=== PATIENT | male | born 1955 | race Caucasian/White ===

== ENCOUNTER 2016-06-21 18:55 | Inpatient (IN) | payer OTHER ==
--- NOTE | 2016-06-21 20:04 | PDOC ---
History of Present Illness - General History Source: Patient, Primary Care Provider Exam Limitations: No Limitations - History of Present Illness Initial Comments: 06/21/16 23:28 The patient is a 61 year old male, with a significant past medical history of hypertension and hyperlipidemia, who presents to the emergency department sent by PCP (Dr. Maldonado) for evaluation secondary to abnormal lab work. The patient reports several days of nonradiating abdominal pain, which he reports is worst in the RUQ. The patient reports that the abdominal pain is intermittent and notes that it is waxing and waning in intensity. The patient additionally reports nausea and weakness but denies any episodes of vomiting. The patient denies fever, chills, diarrhea, melena/bpr or dysuria. Allergies: None reported. Past Surgical History: None reported. Social History: Non smoker. Denies alcohol or drug use. PCP: Dr. Maldonado <Lilly Sr - Last Filed: 06/21/16 23:30> <Doug Escobar - Last Filed: 06/21/16 23:51> - General Chief Complaint: Pain Stated Complaint: PCP SENT/STOMACH PAIN Time Seen by Provider: 06/21/16 19:54 Past History <Lilly Sr - Last Filed: 06/21/16 23:30> - Past Medical History HTN: Yes Hypercholesterolemia: Yes - Psycho/Social/Smoking Cessation Hx Anxiety: No Suicidal Ideation: No Smoking History: Never smoked Have you smoked in the past 12 months: No Information on smoking cessation initiated: No Hx Alcohol Use: No Drug/Substance Use Hx: No Substance Use Type: Alcohol <Doug Escobar - Last Filed: 06/21/16 23:51> - Past Medical History Allergies/Adverse Reactions: Allergies Allergy/AdvReac Type Severity Reaction Status Date / Time No Known Allergies Allergy Verified 06/21/16 19:04 Review of Systems - Review of Systems Able to Perform ROS?: Yes Comments:: 06/21/16 23:01 CONSTITUTIONAL: +Weakness. No fever, no chills EYES: No visual changes ENT: No ear pain, no sore throat CARDIOVASCULAR: No chest pain, no palpitations RESPIRATORY: No cough, no SOB GI: +Nausea, abdominal pain. No vomiting, no constipation, no diarrhea GENITOURINARY: No dysuria, no frequency, no hematuria MUSCULOSKELETAL: No back pain, no joint pain, no myalgias SKIN: No rash NEURO: No headache <Lilly Sr - Last Filed: 06/21/16 23:30> *Physical Exam - Vital Signs Last Vital Signs Temp Pulse Resp BP Pulse Ox 98.5 F 98 H 18 135/74 100 06/21/16 19:04 06/21/16 19:04 06/21/16 19:04 06/21/16 19:04 06/21/16 19:04 - Physical Exam Comments: 06/21/16 23:03 CONSTITUTIONAL: Well-appearing; well-nourished; in no apparent distress. HEAD: Normocephalic; atraumatic. EYES: No scleral icterus. Conjunctiva are pink. PERRL; EOM intact. ENMT: External appears normal; normal oropharynx. NECK: Supple; non-tender; no cervical lymphadenopathy. CARD: Normal S1, S2; no murmurs, rubs, or gallops. RESP: Normal chest excursion with respiration; breath sounds clear and equal bilaterally; no wheezes, rhonchi, or rales. ABD: RUQ tenderness to palpation. No guarding, no rebound. Soft, non-distended; no palpable organomegaly, no palpable hernias. EXT: Normal ROM in all four extremities; non-tender to palpation; distal pulses intact. SKIN: Warm, dry, no rash. NEURO: No focal neurological deficiencies. Normal speech, normal gait. <Lilly Sr - Last Filed: 06/21/16 23:30> - Vital Signs Last Vital Signs Temp Pulse Resp BP Pulse Ox 98.5 F 98 H 18 135/74 100 06/21/16 19:04 06/21/16 19:04 06/21/16 19:04 06/21/16 19:04 06/21/16 19:04 <Doug Escobar - Last Filed: 06/21/16 23:51> Heart Score/ECG Review #1 ECG reviewed & interpreted by me at: 22:41 (Vent Rate: 83 bpm. Normal sinus rhythm.) <Lilly Sr - Last Filed: 06/21/16 23:30> ED Treatment Course - LABORATORY CBC & Chemistry Diagram: 06/21/16 20:11 06/21/16 20:11 <Lilly Sr - Last Filed: 06/21/16 23:30> - LABORATORY CBC & Chemistry Diagram: 06/21/16 20:11 06/21/16 20:11 - RADIOLOGY Radiology Studies Ordered: Category Date Time Status CHEST - PA [RAD] Stat Radiology 06/21/16 20:01 Ordered ABDOMEN US -LIMITED [US] Stat Ultrasound 06/21/16 20:01 Ordered <Doug Escobar - Last Filed: 06/21/16 23:51> Medical Decision Making - Medical Decision Making 06/21/16 23:08 EXAM: US/ABDOMEN US - LIMITED Reviewed By: Dr. Juliano Martinez IMPRESSION: Hepatomegaly with fatty infiltration versus hepatocellular disease. Please correlate with liver enzymes. Gallbladder debris with minimal sludge and probable tiny stones with mild thickening of its wall and without evidence of pericholecystic free fluid. Correlate clinically for further evaluation. Enlarged pancreas, mainly the pancreatic head with heterogenous echotexture for which further evaluation with three-phase CT scan of the abdomen/pancreas is recommended to evaluate for acute pancreatitis versus a mass. <Lilly Sr - Last Filed: 06/21/16 23:30> - Medical Decision Making 06/21/16 23:46 Patient is a 61-year-old Salvadorean speaking male with history of hypertension and hypercholesterolemia who presents with intermittent right upper quadrant pain associated with nausea, generalized weakness and malaise. Patient had been seen and evaluated by his primary care physician 2 days previously who obtained outpatient CBC and CMP which revealed elevated white blood cell count of 27 with 14 percent bandemia, elevated total and direct bilirubin, elevated ALTs and alkaline phosphatase consistent with obstructive pattern. In the ER, patient is awake and alert, nontoxic-appearing, afebrile and hemodynamically stable. CBC reveals significant decrease leukocytosis to 15, decrease and total and direct bilirubin as well as decrease in transaminases. Right upper quadrant ultrasound shows fatty infiltration of the liver, debris and tiny stones within the gallbladder as well as a questionable pancreatic head mass. Blood cultures been obtained and patient has received IV Zosyn for suspected cholangitis. At this time, I suspect patient may have had a small CBD stone that had passed. However, patient will require admission, GI and surgical evaluation. Will admit. Will keep nothing by mouth. <Doug Escobar - Last Filed: 06/21/16 23:51> *DC/Admit/Observation/Transfer - Attestations Scribe Attestion: 06/21/16 20:08 Documentation prepared by Lilly Sr, acting as medical clerk for Doug Escobar MD. <Lilly Sr - Last Filed: 06/21/16 23:30> - Discharge Dispostion Admit: Yes - Attestations Physician Attestion: 06/21/16 23:46 The documentation was prepared by the scribe under my direct supervision. I have reviewed the documentation which correctly represents the findings, medical decision-making and critical action taken by me. <Doug Escobar - Last Filed: 06/21/16 23:51> Diagnosis at time of Disposition: Cholangitis - Discharge Dispostion Condition at time of disposition: Fair - Referrals Referrals: Kristi Maldonado MD [Primary Care Provider] -
[2016-06-21] MEDS ORDERED: SODIUM CHLORIDE 500 ML IV STA (20:05)
[2016-06-21] MEDS ORDERED: PIPERACILLIN/TAZOB 4.5 GM/100 ML PRE-DOCKED IVPB ONE (20:30)
[2016-06-21 20:31] LABS: BASOPHIL 0.1 % (0-2.0); EOSINOPHIL 0.6 % (0-4.5); MCHC 33.7 g/dl (32.0-35.9); MEAN PLT VOLUME 9.4 fl (7.5-11.1); NEUTROPHILS 80.5 % (42.8-82.8); PLATELET COUNT 263 K/MM3 (134-434); RDW 15.6 % (11.9-15.9); WHITE BLOOD COUNT 15.9 K/mm3 (4.0-10.0)
[2016-06-21] MEDS ORDERED: PIPERACILLIN/TAZOB 4.5 GM 100 ML IVPB ONE (20:51)
[2016-06-21 20:57] LABS: ALBUMIN 2.7 g/dl (3.4-5.0); ALK PHOS 225 U/L (45-117); ANION GAP 13 (8-16); BILIRUBIN,DIRECT 1.4 mg/dL (0.0-0.2); CALCIUM 8.6 mg/dL (8.5-10.1); CO2 29 mmol/L (21-32); COCKROFT - GAULT 123.96; CREATININE 0.9 mg/dL (0.7-1.3); GLUCOSE,RANDOM 115 mg/dL (74-106); SGOT/AST 43 U/L (15-37); SGPT/ALT 97 U/L (12-78); TOT PROT 6.4 g/dl (6.4-8.2)
[2016-06-21 21:29] LABS: URINE APPEARANCE CLEAR; URINE BLOOD NEGATIVE (NEGATIVE); URINE COLOR AMBER; URINE GLUCOSE (UA) NEGATIVE (NEGATIVE); URINE KETONE TRACE (NEGATIVE); URINE LEUK ESTERASE NEGATIVE (NEGATIVE); URINE NITRITE NEGATIVE (NEGATIVE); URINE UROBILINOGEN 4.0 E.U/dl E.U./dl (0.2-1.0)
[2016-06-21 21:54] LABS: URINE PROTEIN 1+ (NEGATIVE)
[2016-06-21 22:01] LABS: URINE MUCUS MANY; URINE RBC 1 /hpf (0-3); URINE WBC 9 /hpf (3-5)
[2016-06-22] MEDS ORDERED: ONDANSETRON 4 MG/2 ML VIAL IVPB PRN (00:27)
--- NOTE | 2016-06-22 00:27 | HP ---
CHIEF COMPLAINT: Sent by PCP for abnormal labs & abdominal pain PCP: Erica HISTORY OF PRESENT ILLNESS: Patient is a 61 year old male with PMH of HTN & HLD who is sent to ED from PCP Erica's office. Patient has been having abdominal pain, notably in RUQ since last Saturday. He states the pain is moderate, intermittent and diffuse but concentrated in RUQ. He has not eaten since Saturday and has not had a bowel movement since then also. He has felt weak since then, stating his energy levels are below usual baseline. He has been nauseas as well, without vomiting. He has been gassy as well, but notes his distended abdomen is his baseline ("I am fat gaurav, this is normal"). He visited his PCP on Saturday, who ant labs and sent patient into ED today for following abnormal labs: WBC 27 TotalBilirubin 7.3 Direct Bilirubin 2.2 ALP 182 Patient currently feels no pain. Denies fever, chills, dysuria, chest pain, SOB , palpitations, headache visual changes or changes in mental status. ER course was notable for: (1)US shows GB with minimal sludge & tiny stones with some mild wall thickening. Pancreases is enlarged with possible mass in pancreatic head. Hepatomegaly (fatty vs Hepatocellular disease) (2)WBC elevated at 16 with Total Bilirubin 3 (both significantly improved from PCP's initial labwork) (3)Zosyn started Recent Travel: none noted PAST MEDICAL HISTORY: as above PAST SURGICAL HISTORY: none noted Social History: Smoking:NONE REPORTED Alcohol:USED TO DRINK "ALOT OF VODKA" BUT QUIT 2 WEEKS AGO Drugs: NONE REPORTED Family History: PATIENT UNSURE Allergies No Known Allergies Allergy (Verified 06/21/16 19:04) HOME MEDICATIONS: REVIEW OF SYSTEMS CONSTITUTIONAL: (+)generalized weakness, Absent: fever, chills, diaphoresis, malaise, loss of appetite, weight change HEENT: Absent: rhinorrhea, nasal congestion, throat pain, throat swelling, difficulty swallowing, mouth swelling, ear pain, eye pain, visual changes CARDIOVASCULAR: Absent: chest pain, syncope, palpitations, irregular heart rate, lightheadedness , peripheral edema RESPIRATORY: Absent: cough, shortness of breath, dyspnea with exertion, orthopnea, wheezing, stridor, hemoptysis GASTROINTESTINAL: (+)abdominal pain, abdominal distension, nausea, Absent: vomiting, diarrhea, melena, hematochezia GENITOURINARY: Absent: dysuria, frequency, urgency, hesitancy, hematuria, flank pain, genital pain MUSCULOSKELETAL: Absent: myalgia, arthralgia, joint swelling, back pain, neck pain SKIN: Absent: rash, itching, pallor HEMATOLOGIC/IMMUNOLOGIC: Absent: easy bleeding, easy bruising, lymphadenopathy, frequent infections ENDOCRINE: Absent: unexplained weight gain, unexplained weight loss, heat intolerance, cold intolerance NEUROLOGIC: Absent: headache, focal weakness or paresthesias, dizziness, unsteady gait, seizure, mental status changes, bladder or bowel incontinence PSYCHIATRIC: Absent: anxiety, depression, suicidal or homicidal ideation, hallucinations. PHYSICAL EXAMINATION Vital Signs - 24 hr 06/21/16 19:04 Temperature 98.5 F Pulse Rate 98 H Respiratory 18 Rate Blood Pressure 135/74 O2 Sat by Pulse 100 Oximetry (%) GENERAL: Awake, alert, and fully oriented, in no acute distress. Morbidly obese. HEENT: Atraumatic, EOMI, PERRLA, Moist membranes, no lymphadenopathy noted LUNGS: Breath sounds equal, clear to auscultation bilaterally. No wheezes, and no crackles. No accessory muscle use. HEART: Regular rate and rhythm, normal S1 and S2 without murmur, rub or gallop. ABDOMEN: Soft, mildly tender to deep palpation diffusely, moderately distended ( but not above usual baseline, as per patient), hypoactive bowel sounds. No guarding, no rebound, no masses felt. MUSCULOSKELETAL: Normal range of motion at all joints. No bony deformities or tenderness. No CVA tenderness. UPPER EXTREMITIES: 2+ pulses, warm, well-perfused. No cyanosis. No clubbing. No peripheral edema. LOWER EXTREMITIES: 2+ pulses, warm, well-perfused. No calf tenderness. No peripheral edema. NEUROLOGICAL: Cranial nerves II-XII intact. Normal speech. Normal gait. PSYCHIATRIC: Cooperative. Good eye contact. Appropriate mood and affect. SKIN: Warm, dry, normal turgor, no rashes or lesions noted, normal capillary refill. Laboratory Results - last 24 hr 06/21/16 06/21/16 06/21/16 20:11 20:11 20:11 WBC 15.9 H RBC 4.82 Hgb 14.4 Hct 42.8 MCV 89.0 MCHC 33.7 RDW 15.6 Plt Count 263 MPV 9.4 Neutrophils % 80.5 Lymphocytes % 6.1 L Monocytes % 12.7 H Eosinophils % 0.6 Basophils % 0.1 Sodium 135 L Potassium 3.2 L Chloride 93 L Carbon Dioxide 29 Anion Gap 13 BUN 13 Creatinine 0.9 Creat Clearance w eGFR > 60 Random Glucose 115 H Lactic Acid 1.084 Calcium 8.6 Total Bilirubin 3.0 H Direct Bilirubin 1.4 H AST 43 H ALT 97 H Alkaline Phosphatase 225 H Total Protein 6.4 Albumin 2.7 L Lipase 144 Urine Color Urine Appearance Urine pH Ur Specific [place] Urine Protein Urine Glucose (UA) Urine Ketones Urine Blood Urine Nitrite Urine Bilirubin Urine Urobilinogen Ur Leukocyte Esterase Urine RBC Urine WBC Ur Epithelial Cells Urine Mucus 06/21/16 20:57 WBC RBC Hgb Hct MCV MCHC RDW Plt Count MPV Neutrophils % Lymphocytes % Monocytes % Eosinophils % Basophils % Sodium Potassium Chloride Carbon Dioxide Anion Gap BUN Creatinine Creat Clearance w eGFR Random Glucose Lactic Acid Calcium Total Bilirubin Direct Bilirubin AST ALT Alkaline Phosphatase Total Protein Albumin Lipase Urine Color Anna Urine Appearance Clear Urine pH 6.0 Ur Specific [place] 1.023 Urine Protein 1+ H Urine Glucose (UA) Negative Urine Ketones Trace H Urine Blood Negative Urine Nitrite Negative Urine Bilirubin 2.0 Urine Urobilinogen 4.0 e.u/dl Ur Leukocyte Esterase Negative Urine RBC 1 Urine WBC 9 Ur Epithelial Cells Rare Urine Mucus Many ASSESSMENT/PLAN: 61 year old male with PMH of HTN & HLD who is sent to ED from PCP Erica's office. Patient has been having abdominal pain, notably in RUQ. WBC elevated with elevated TBili, DirectBili, ALP. #Acute Sepsis, secondary to cholangitis -Zosyn started, 4.5gm IVPB Q8H -KUB ordered to r/o intestinal obstruction -NPO -Cultures sent -IVF NS@75cc/hr -GI consulted -bowel regimen: Colace, Miralax -Zofran 4mg IVPB q6h PRN for nausea -Protonix 40mg PO daily -Morphine 2mg q6h PRN for pain #Possible Pancreatic mass -patient will require tri-phase CT scan in AM to assess Pancreas for masses -will defer to GI regarding need for ERCP #Hypokalemia -repleted with 40mEq elixir -follow in AM #Hypertension -patient is unsure of names, but states he is on 2 antihypertensive medications -need to confirm with pharmacy in AM -will trend BP for now Prophylaxis -Heparin 5000 BID -PPI -IVF NS@75cc/hr -continue to monitor electrolytes -NPO for now Visit type - Emergency Visit Emergency Visit: Yes ED Registration Date: 06/21/16 Care time: The patient presented to the Emergency Department on the above date and was hospitalized for further evaluation of their emergent condition. - New Patient This patient is new to me today: Yes Date on this admission: 06/22/16 - Critical Care Critical Care patient: No
[2016-06-22] MEDS ORDERED: SODIUM CHLORIDE 1,000 ML IV SCH (00:30)
[2016-06-22] MEDS ORDERED: POTASSIUM CHLORIDE TABS 20 MEQ TABLET.ER (FP) PO ONE ×2 (00:37→00:57)
--- NOTE | 2016-06-22 02:20 | PN ---
<Thuy Fleming - Last Filed: 06/22/16 02:20> Teaching Attending Note Name of Resident: Jorje Baltazar <Radha Herrera - Last Filed: 06/22/16 04:43> Teaching Attending Note ATTENDING PHYSICIAN STATEMENT I saw and evaluated the patient. I reviewed the resident's note and discussed the case with the resident. I agree with the resident's findings and plan as documented. SUBJECTIVE: 61 yo M with a PMHx of HLD who presents with abdominal pain, nausea and weakness.. The patient states he ate a big meal 7 days ago and since then has been experiencing intermittent upper abdominal pain, worse in the RUQ. The patient denies any vomiting episodes. Patient reports visiting his PCPs office (Dr. Maldonado) and was sent in for evaluation due to WBC count of 27. He denies chest pain, headache or dizziness. He denies fever, chills, vomit, diarrhea or constipation. He denies dysuria, frequency, urgency or hematuria. PMHx: HTN PSHx: Noncontributory Social Hx: Former EtOH drinker Allergies: NKA OBJECTIVE: Last Vital Signs Temp Pulse Resp BP Pulse Ox 98.4 F 92 H 17 133/57 98 06/22/16 02:08 06/22/16 02:08 06/22/16 02:08 06/22/16 02:08 06/22/16 02:08 GENERAL: Awake, alert, and fully oriented, in no acute distress. + Morbidly obese. HEENT: Atraumatic. PERRLA, EOMI. Moist mucosa. No JVD LUNGS: No distress, speaks full sentences, clear to auscultation bilaterally HEART: Regular rate and rhythm, normal S1 and S2, no murmurs, rubs or gallops, peripheral pulses normal and equal bilaterally. ABDOMEN: + RUQ tednerness. Negative Cuellar sign. Soft, nontender, normoactive bowel sounds. No guarding, no rebound. No masses EXTREMITIES: Normal inspection, Normal range of motion, no edema. No clubbing or cyanosis. NEUROLOGICAL: Cranial nerves II through XII grossly intact. Normal speech, normal gait, no focal sensorimotor deficits SKIN: Warm, Dry, normal turgor, no rashes or lesions noted. CBCD WBC 15.9 K/mm3 (4.0-10.0) H 06/21/16 20:11 RBC 4.82 M/mm3 (4.00-5.60) 06/21/16 20:11 Hgb 14.4 GM/dL (11.7-16.9) 06/21/16 20:11 Hct 42.8 % (35.4-49) 06/21/16 20:11 MCV 89.0 fl (80-96) 06/21/16 20:11 MCHC 33.7 g/dl (32.0-35.9) 06/21/16 20:11 RDW 15.6 % (11.9-15.9) 06/21/16 20:11 Plt Count 263 K/MM3 (134-434) 06/21/16 20:11 MPV 9.4 fl (7.5-11.1) 06/21/16 20:11 CMP Sodium 135 mmol/L (136-145) L 06/21/16 20:11 Potassium 3.2 mmol/L (3.5-5.1) L 06/21/16 20:11 Chloride 93 mmol/L (98-107) L 06/21/16 20:11 Carbon Dioxide 29 mmol/L (21-32) 06/21/16 20:11 Anion Gap 13 (8-16) 06/21/16 20:11 BUN 13 mg/dL (7-18) 06/21/16 20:11 Creatinine 0.9 mg/dL (0.7-1.3) 06/21/16 20:11 Creat Clearance w eGFR > 60 (>60) 06/21/16 20:11 Calcium 8.6 mg/dL (8.5-10.1) 06/21/16 20:11 Total Bilirubin 3.0 mg/dL (0.2-1.0) H 06/21/16 20:11 AST 43 U/L (15-37) H 06/21/16 20:11 ALT 97 U/L (12-78) H 06/21/16 20:11 Alkaline Phosphatase 225 U/L (45-117) H 06/21/16 20:11 Total Protein 6.4 g/dl (6.4-8.2) 06/21/16 20:11 Albumin 2.7 g/dl (3.4-5.0) L 06/21/16 20:11 Imaging: Abdominal US IMPRESSION: Hepatomegaly with fatty infiltration versus hepatocellular disease. Please correlate with liver enzymes. Gallbladder debris with minimal sludge and probable tiny stones with mild thickening of its wall and without evidence of pericholecystic free fluid. Correlate clinically for further evaluation. Enlarged pancreas, mainly the pancreatic head with heterogenous echotexture for which further evaluation with three-phase CT scan of the abdomen/pancreas is recommended to evaluate for acute pancreatitis versus a mass. EKG Vent Rate: 83 bpm. Normal sinus rhythm ASSESSMENT AND PLAN: 1.Abdominal pain secondary to Cholangitis r/o pancreatic malignancy. NPO IVF Zosyn Xofran PRN Morphine 2mg IVP Q6 for severe pain Follow up CBC and BMP in am GIconsult for consideration of ERCP CT abdomen 2.)DVT PPx Heparin 5000 units TID 3.) Obesity Refer to nutrition for weight loss Documentation prepared by Radha Herrera, acting as medical claims manager for Thuy Fleming MD
[2016-06-22 02:29] VITALS: BMI 34.4
[2016-06-22 03:00] LABS: ALLENS TEST POSITIVE; ART PUNCT SITE LEFT RADIAL; ARTERIAL BLD GAS O2 SATURATION 94.1 % (90-98.9); ARTERIAL BLOOD GAS BASE EXCESS 2.1 meq/l (-2-2); ARTERIAL BLOOD GAS HCO3 24.8 meq/L (22-26); ARTERIAL BLOOD GAS PO2 66.6 mmHg (80-100); ARTERIAL BLOOD GAS pH 7.47 (7.35-7.45); LPM/O2% 21%; METHEMOGLOBIN 0.9 % (0.4-1.5); PT. ON O2? NO
[2016-06-22 03:01] LABS: TYPE OF O2 ROOM AIR
[2016-06-22] MEDS ORDERED: PIPERACILLIN/TAZOB 4.5 GM/100 ML PRE-DOCKED IVPB SCH (06:00)
[2016-06-22] MEDS: DOCUSATE SODIUM 100 MG CAPSULE (FP) PO SCH ×3 (06:45→23:03)
[2016-06-22 07:16] LABS: MCH 30.4 pg (25.7-33.7); MCHC 34.4 g/dl (32.0-35.9); MEAN CELL VOLUME 88.5 fl (80-96); MEAN PLT VOLUME 8.9 fl (7.5-11.1); PLATELET COUNT 205 K/MM3 (134-434); RDW 15.8 % (11.9-15.9); WHITE BLOOD COUNT 14.7 K/mm3 (4.0-10.0)
[2016-06-22 07:44] LABS: CALCIUM 8.3 mg/dL (8.5-10.1)
[2016-06-22 07:49] LABS: ALBUMIN 2.3 g/dl (3.4-5.0); ALK PHOS 202 U/L (45-117); ANION GAP 13 (8-16); BILIRUBIN,TOTAL 2.3 mg/dL (0.2-1.0); CO2 25 mmol/L (21-32); COCKROFT - GAULT 182.96; CREATININE 0.6 mg/dL (0.7-1.3); GLUCOSE,RANDOM 99 mg/dL (74-106); SGOT/AST 48 U/L (15-37); SGPT/ALT 90 U/L (12-78); TOT PROT 5.4 g/dl (6.4-8.2)
[2016-06-22] MEDS ORDERED: LEVOFLOXACIN 500 MG IVPB 100 ML IVPB ONE (09:02)
[2016-06-22] MEDS: POLYETHYLENE GLYCOL 3350 119 GM BTL PO SCH (09:13)
[2016-06-22] MEDS: PANTOPRAZOLE 40 MG TABLET (FP) PO SCH (09:13)
[2016-06-22] MEDS: LEVOFLOXACIN 500 MG IVPB 100 ML IVPB SCH (09:49)
[2016-06-22] MEDS: HEPARIN NA (PORCINE) 5,000 UNITS/ML 1ML VIAL SQ SCH ×2 (09:49→23:03)
--- NOTE | 2016-06-22 10:34 | PN ---
Physical Exam: SUBJECTIVE: Patient seen and examined at bedside. Vague about history of alcohol intake. When he drinks he drinks 4-5 glasses of vodka. Declines to say when he last drank. Abdominal pain comes and goes. OBJECTIVE: Vital Signs Period Temp Pulse Resp BP Sys/[place] Pulse Ox Last 24 Hr 98.4 F-99.3 F 78-92 17-22 102-133/52-75 96-98 GENERAL: The patient is awake, alert, and fully oriented, in no acute distress. HEAD: Normal with no signs of trauma. EYES: PERRL, extraocular movements intact, sclera anicteric, conjunctiva clear. No ptosis. LUNGS: Breath sounds equal, clear to auscultation bilaterally, no wheezes, no crackles, no accessory muscle use. HEART: Regular rate and rhythm, S1, S2 without murmur, rub or gallop. ABDOMEN: Soft, not distended, +tenderness over the RUQ and epigastrum; hypoactive bowel sounds; no rebound, guarding; +mass appeciated on left flank EXTREMITIES: 2+ pulses, warm, well-perfused, no edema. NEUROLOGICAL: Cranial nerves II through XII grossly intact. Normal speech, gait not observed. Moves all extremities freely. Laboratory Results - last 24 hr 06/22/16 06/22/16 06/22/16 02:50 06:00 06:00 WBC 14.7 H RBC 4.27 Hgb 13.0 Hct 37.8 MCV 88.5 MCHC 34.4 RDW 15.8 Plt Count 205 D MPV 8.9 Puncture Site Left radial ABG pH 7.47 H ABG pCO2 at Pt Temp 34.2 L ABG pO2 at Pt Temp 66.6 L ABG HCO3 24.8 ABG O2 Sat (Measured) 94.1 ABG O2 Content 20.9 ABG Base Excess 2.1 H Samir Test Positive Carboxyhemoglobin 2.4 H Methemoglobin 0.9 O2 Delivery Device Room air Oxygen Flow Rate 21% Sodium 136 Potassium 3.5 Chloride 98 Carbon Dioxide 25 Anion Gap 13 BUN 13 Creatinine 0.6 L D Creat Clearance w eGFR > 60 Random Glucose 99 Calcium 8.3 L Total Bilirubin 2.3 H D AST 48 H ALT 90 H Alkaline Phosphatase 202 H Total Protein 5.4 L Albumin 2.3 L Active Medications Generic Name Dose Route Start Last Admin Trade Name Freq PRN Reason Stop Dose Admin Docusate Sodium 100 mg 06/22/16 06:00 06/22/16 06:45 Colace - PO Not Given TID AMANDA Heparin Sodium (Porcine) 5,000 unit 06/22/16 10:00 06/22/16 09:49 Heparin - SQ 5,000 unit BID AMANDA Administration Sodium Chloride 1,000 mls @ 75 mls/hr 06/22/16 00:30 06/22/16 01:14 Normal Saline - IV 06/22/16 13:49 75 mls/hr ASDIR AMANDA Administration Metronidazole 100 mls @ 100 mls/hr 06/22/16 10:00 Flagyl 500mg Premixed Ivpb - IVPB Q8H-IV AMANDA Levofloxacin 100 mls @ 100 mls/hr 06/22/16 09:15 06/22/16 09:49 Levaquin 500 Mg Premixed Ivpb - IVPB 100 mls/hr DAILY AMANDA Administration Morphine Sulfate 2 mg 06/22/16 05:59 Morphine Injection - IVPUSH Q6H PRN PAIN Ondansetron HCl 4 mg 06/22/16 00:27 Zofran Injection IVPB Q6H PRN NAUSEA Pantoprazole Sodium 40 mg 06/22/16 10:00 06/22/16 09:13 Protonix - PO Not Given DAILY AMANDA Polyethylene Glycol 17 gm 06/22/16 10:00 06/22/16 09:13 Miralax (For Daily Use) - PO Not Given DAILY [facility] ASSESSMENT/PLAN 61 year-old male with a PMH of HTN and HLD, presented to his PCP with complaint of RUQ pain. PCP did blood work which showed WBC 27k, Total bili 7.3, Direct bili 2.2, and Alkphos 182. Patient was sent to ED Biliary colic Leukocytosis Hyperbilirubinemia --US shows gallbladder debris with minimal sludge, tiny stones, mild wall thickening, no duct dilitation --also shows enlarged pancreas, mainly pancreatic head, concern for acute pancreatitis v. pancreatic mass --Total bili trending down 7.3-->2.3; lipase wnl --start levofloxacin (day #1) and metronidazole (day #1) --MRCP ordered per GI Pyruria --antibiotics as above --culture pending F/E/N Fluids: NS @ 75mL/hr Electrolytes: replete as indicated Nutrition: NPO DVT prophylaxis: subq heparin Dispo: continues to require inpatient care. Full code. Visit type - Emergency Visit Emergency Visit: Yes ED Registration Date: 06/21/16 Care time: The patient presented to the Emergency Department on the above date and was hospitalized for further evaluation of their emergent condition. - New Patient This patient is new to me today: Yes Date on this admission: 06/22/16 - Critical Care Critical Care patient: No
[2016-06-22] MEDS: METRONIDAZOLE 500 MG PREMIXED 100 ML IVPB SCH ×2 (10:45→18:47)
--- NOTE | 2016-06-22 11:24 | EKG ---
Test Reason : Blood Pressure : / mmHG Vent. Rate : 083 BPM Atrial Rate : 083 BPM P-R Int : 158 ms QRS Dur : 082 ms QT Int : 396 ms P-R-T Axes : 046 023 028 degrees QTc Int : 465 ms NORMAL SINUS RHYTHM NO PREVIOUS ECGS AVAILABLE Confirmed by WESLEY KOENIG MD ([id number]) on 06/22/2016 11:23:51 AM Referred By: Confirmed By:WESLEY KOENIG MD
[2016-06-22] MEDS: DEXTROSE 5%-NORMAL SALINE 1,000 ML IV SCH (13:57)
[2016-06-22 16:53] LABS: URINE APPEARANCE CLEAR; URINE BILIRUBIN NEGATIVE (NEGATIVE); URINE BLOOD NEGATIVE (NEGATIVE); URINE COLOR AMBER; URINE GLUCOSE (UA) NEGATIVE (NEGATIVE); URINE KETONE 1+ (NEGATIVE); URINE LEUK ESTERASE NEGATIVE (NEGATIVE); URINE NITRITE NEGATIVE (NEGATIVE); URINE PROTEIN NEGATIVE (NEGATIVE); URINE UROBILINOGEN 4.0 E.U/dl E.U./dl (0.2-1.0)
--- NOTE | 2016-06-22 17:24 | CON.GI ---
Consult Consult Specialty:: Gastroenterology Reason for Consultation:: abdominal pain - History of Present Illness Chief Complaint: abdominal pain History of Present Illness: 61 YEAR OLD ENGLISH MALE ADMITTED WITH ABDOMINAL PAIN AND ELEVATED LFT'S. HE STATES THAT LAST SATURDAY HE HAD A BANANNA AND STRAWBERRY SMOOTHIE AND ONE HOUR LATER HAD VERY BAD ABDOMINAL PAIN WITH ABDOMINAL DISTENSION . HE BECAME NAUSEATED AND VOMITIED 3 TO 4 TIMES (NO BLOOD). HE FELT BETTER THE NEXT DAY AND ATE SOUP AND THE PAIN CAME BACK. FROM THAT POINT ON HE EITHER DID NOT EAT OR DRANK WATER ONLY. HE TOLD A FRIEND HOW SICK HE WAS AND HIS FRIEND GAVE HIM THE NUMBER OF DR TOLENTINO. DR TOLENTINO SAROJ BLOOD AND CALLED HIM THE NEXT DAY WHEN HIS LABS WERE ABNORMAL. DR TOLENTINO TOLD HIM TO GO TO THE ER AND THEN HE WAS ADMITTED. HE DENIES DRINKING ANY ALCOHOL SINCE . HE HAS NO RECTAL BLEEDING OR FEVER. HE DOES STATE THAT HE HAS HAD THIS PAIN ON OCCASION BEFORE. HE HAS NOR KNOWN GALLSTONE HISTORY. - History Source History Provided By: Patient Limitations to Obtaining History: No Limitations - Past Medical History GAME ATTENDANT: No: Alzheimer's, CVA, Dementia, Migraine, Multiple Sclerosis, Peripheral Neuropathy, Parkinson's, Seizure, Syncope, TIA, Vertigo, Other Cardio/Vascular: No: AFIB, Aneurysm, Aortic Insufficiency, Aortic Stenosis, CAD , CHF, Deep Vein Thrombosis, HTN, Hyperlipdemia, MO, Mitral Insufficiency, Mitral Stenosis, Murmur, Pulmonary Hypertension, Other Pulmonary: No: Asthma, Bronchitis, Cancer, COPD, O2 Dependent, Pneumonia, Previously Intubated, Pulmonary Embolus, Pulmonary Fibrosis, Sleep Apnea, Other Gastrointestinal: No: Ascites, Cancer, Constipation, Crohn's Disease, Diverticulitis, Diverticulosis, Esophageal Varices, Gastritis, GERD, GI Bleed, Hemorrhoids, Hiatal Hernia, Inflamatory Bowel Disease, Irritable Bowel Disease, Pancreatitis, Peptic Ulcer Disease, Ulcerative Colitis, Other Hepatobiliary: No: Cirrhosis, Cholelithiasis, Cholecystitis, Choledocholithiasis , Hepatitis A, Hepatitis B, Hepatitis C, Other Renal/: No: Renal Failure, Renal Inusuff, BPH, Cancer, Hematuria, Hemodialysis , Neurogenic Bladder, Renal Calculi, UTI, Other Heme/Onc: No: Anemia, B12 Deficiency, Bleeding Disorder, Cancer, Current Chemotherapy, Current Radiation Therapy, Hemochromatosis, Hypercoaguable State, Myeloproliferative Synd, Sickle Cell Disease, Sickle Cell Trait, Thrombocytopenia, Other Infectious Disease: No: AIDS, C-Diff, Herpes Zoster, HIV, MRSA, STD's, Tuberculosis, VREF, Other Psych: No: Addictions, Anxiety, Bipolar, Depression, Panic, Psychosis, Schizophrenia, Other Musculoskeletal: No: Bursitis, Chronic low back pain, Hemiparesis, Hemiplegia, Osteoarthritis, Paraplegia, Other Rheumatology: No: Fibromyalgia, Gout, Lupus, Rheumatoid Arthritis, Sarcoidosis, Vasculitis, Other ENT: No: Allergic Rhinitis, Sinusitis, Other Endocrine: No: Kern's Disease, [place]'s Disease, Diabetes Insipidus, Diabetes Mellitus, Hyperparathyroidism, Hyperthyroidism, Hypothyroidism, Osteopenia, SIADH, Other Dermatology: No: Basal Cell, Cellulitis, Eczema, Melanoma, Psoriasis, Squamous Cell, Other - Alcohol/Substance Use Hx Alcohol Use: Yes (states to me drinks at celebrations last with friends on [facility]) - Smoking History Smoking history: Never smoked Have you smoked in the past 12 months: No Home Medications - Allergies Allergies/Adverse Reactions: Allergies Allergy/AdvReac Type Severity Reaction Status Date / Time No Known Allergies Allergy Verified 06/21/16 19:04 - Home Medications Home Medications: Ambulatory Orders NK [No Known Home Medication] 06/22/16 Family Disease History - Family Disease History Family History: Unremarkable Review of Systems - Review of Systems Constitutional: reports: Chills, Loss of Appetite, Weakness Eyes: reports: No Symptoms HENT: reports: No Symptoms Neck: reports: No Symptoms Cardiovascular: reports: No Symptoms Respiratory: reports: No Symptoms Gastrointestinal: reports: Abdominal Pain, Nausea, Vomiting Musculoskeletal: reports: No Symptoms Integumentary: reports: No Symptoms Neurological: reports: No Symptoms Endocrine: reports: No Symptoms Hematology/Lymphatic: reports: No Symptoms Physical Exam-GI Vital Signs: Vital Signs Temperature 99.3 F 06/22/16 16:20 Pulse Rate 79 06/22/16 16:20 Respiratory Rate 20 06/22/16 16:20 Blood Pressure 133/76 06/22/16 16:20 O2 Sat by Pulse Oximetry (%) 98 06/22/16 14:00 Constitutional: Yes: Well Nourished, Obese Eyes: Yes: Conjunctiva Clear HENT: Yes: Normocephalic Neck: Yes: Supple Cardiovascular: Yes: Regular Rate and Rhythm Respiratory: Yes: Regular ...Auscultate: Yes: Normoactive Bowel Sounds ...Palpate: Yes: Soft, Other (mild tenderness to deep palpation) Musculoskeletal: Yes: WNL Extremities: Yes: WNL Neurological: Yes: Alert, Oriented Labs: CBC, BMP 06/22/16 06:00 06/22/16 06:00 Laboratory Tests 06/21/16 06/21/16 06/21/16 20:11 20:11 20:11 WBC 15.9 H RBC Hgb Hct MCV MCHC RDW Plt Count MPV ABG pH ABG pCO2 at Pt Temp ABG pO2 at Pt Temp ABG HCO3 ABG O2 Sat (Measured) ABG O2 Content ABG Base Excess Saimr Test Carboxyhemoglobin Methemoglobin O2 Delivery Device Oxygen Flow Rate Sodium Potassium Chloride Carbon Dioxide Anion Gap BUN Creatinine Creat Clearance w eGFR Random Glucose Lactic Acid 1.084 Total Bilirubin 3.0 H Direct Bilirubin 1.4 H AST ALT Alkaline Phosphatase 225 H Total Protein Albumin Lipase 144 06/22/16 06/22/16 06/22/16 02:50 06:00 06:00 WBC 14.7 H RBC 4.27 Hgb 13.0 Hct 37.8 MCV 88.5 MCHC 34.4 RDW 15.8 Plt Count 205 D MPV 8.9 ABG pH 7.47 H ABG pCO2 at Pt Temp 34.2 L ABG pO2 at Pt Temp 66.6 L ABG HCO3 24.8 ABG O2 Sat (Measured) 94.1 ABG O2 Content 20.9 ABG Base Excess 2.1 H Samir Test Positive Carboxyhemoglobin 2.4 H Methemoglobin 0.9 O2 Delivery Device Room air Oxygen Flow Rate 21% Sodium 136 Potassium 3.5 Chloride 98 Carbon Dioxide 25 Anion Gap 13 BUN 13 Creatinine 0.6 L D Creat Clearance w eGFR > 60 Random Glucose 99 Lactic Acid Total Bilirubin 2.3 H D Direct Bilirubin AST 48 H ALT 90 H Alkaline Phosphatase 202 H Total Protein 5.4 L Albumin 2.3 L Lipase Imaging - Results Ultrasound: Report Reviewed Problem List - Problems (1) Elevated liver function tests Assessment/Plan: HIS ALCOHOL HISTORY IS NOT CLEAR. HE DOES HAVE GALLSTONES AND SLUDGE. THE US REVEALS A THICK GB WALL BUT NO FLUID. THE HEAD OF THE PANCREAS IS ENLARGED AND POSSIBLY THE DUCT. THE LIPASE IS NORMAL. LFT'S HAVE IMPROVE S/P ABX. DOUBT CHOLANGITIS. WILL ORDER MRI AND MRCP TO EVALUATE THE HEAD OF PANCREAS AND THE BILE DUCTS. HE COULD HAVE PASSED A STONE EARLIER IN THE WEEK. WILL FOLLOW WITH YOU. Code(s): R94.5 - ABNORMAL RESULTS OF LIVER FUNCTION STUDIES (2) Gallstones Code(s): K80.20 - CALCULUS OF GALLBLADDER W/O CHOLECYSTITIS W/O OBSTRUCTION
[2016-06-22] MEDS: morphine CARPU-JECT 2 MG/1 ML DISP.SYRIN IVPUSH PRN (18:16)
[2016-06-23] MEDS: METRONIDAZOLE 500 MG PREMIXED 100 ML IVPB SCH ×3 (01:17→17:44)
[2016-06-23] MEDS: morphine CARPU-JECT 2 MG/1 ML DISP.SYRIN IVPUSH PRN (04:30)
[2016-06-23] MEDS: DOCUSATE SODIUM 100 MG CAPSULE (FP) PO SCH ×3 (05:48→22:22)
[2016-06-23 07:01] LABS: BASOPHIL 0.2 % (0-2.0); EOSINOPHIL 1.6 % (0-4.5); MCH 30.6 pg (25.7-33.7); MCHC 34.2 g/dl (32.0-35.9); MEAN CELL VOLUME 89.4 fl (80-96); MEAN PLT VOLUME 9.2 fl (7.5-11.1); NEUTROPHILS 79.1 % (42.8-82.8); PLATELET COUNT 214 K/MM3 (134-434); RDW 16.1 % (11.9-15.9); WHITE BLOOD COUNT 12.9 K/mm3 (4.0-10.0)
[2016-06-23 07:31] LABS: ALBUMIN 2.2 g/dl (3.4-5.0); BILIRUBIN,DIRECT 0.9 mg/dL (0.0-0.2); BILIRUBIN,TOTAL 1.7 mg/dL (0.2-1.0); CALCIUM 8.4 mg/dL (8.5-10.1); COCKROFT - GAULT 182.96; CREATININE 0.6 mg/dL (0.7-1.3); MAGNESIUM 2.2 mg/dL (1.8-2.4); TOT PROT 5.2 g/dl (6.4-8.2)
[2016-06-23] MEDS: DEXTROSE 5%-NORMAL SALINE 1,000 ML IV SCH (09:26)
[2016-06-23] MEDS: LEVOFLOXACIN 500 MG IVPB 100 ML IVPB SCH (09:27)
[2016-06-23] MEDS: POLYETHYLENE GLYCOL 3350 119 GM BTL PO SCH (10:35)
[2016-06-23] MEDS: PANTOPRAZOLE 40 MG TABLET (FP) PO SCH (10:36)
[2016-06-23] MEDS: HEPARIN NA (PORCINE) 5,000 UNITS/ML 1ML VIAL SQ SCH ×2 (10:40→22:22)
[2016-06-23] MEDS ORDERED: DEXTROSE 5%-NORMAL SALINE 1,000 ML IV SCH (12:22)
[2016-06-23] MEDS ORDERED: POTASSIUM CHLORIDE TABS 20 MEQ TABLET.ER (FP) PO ONE ×2 (13:00→15:45)
--- NOTE | 2016-06-23 13:53 | PN ---
GI Progress Note Subjective: GI NOte ( covering Dr Forrest) : Pain has subsided. No vomiting. No BM. Not tremulous. MRCP reveals pancreatitis and perhaps GB sludge but no CBD stones or evidence of cholecystitis. The rapid LFT resolution is more consistent with biliary pancreatitis than that which would occur with alcohol induced pancreatitis. I have advised absolute abstension from alcohol and given his pancreatic head cysts I explained to Bronson that he will need followup after discharge and possible EUS. - Objective Vital Signs: Vital Signs Temperature 98.8 F 06/23/16 08:49 Pulse Rate 76 06/23/16 08:49 Respiratory Rate 18 06/23/16 08:49 Blood Pressure 118/64 06/23/16 08:49 O2 Sat by Pulse Oximetry (%) 98 06/23/16 09:00 Constitutional: Anxious Cardiovascular: Yes: Regular Rate and Rhythm Respiratory: Yes: CTA Bilaterally Gastrointestinal Inspection: Yes: Distention ...Auscultate: Yes: Hypoactive Bowel Sounds ...Palpate: Yes: Soft, Other (nontender) Labs: CBC, BMP 06/23/16 06:00 06/23/16 06:00 Laboratory Tests 06/21/16 06/23/16 06/23/16 20:11 06:00 06:00 WBC 12.9 H Plt Count 214 Calcium 8.4 L Total Bilirubin 3.0 H 1.7 H D Direct Bilirubin 0.9 H D AST 43 H 34 D ALT 97 H 72 Alkaline Phosphatase 225 H 200 H Assessment/Plan Suspect resolving biliary pancreatitis due to a passed stone but continue to respect the possibility of alcohol related pancreattiis. Bronson tells me that he drinks alcohol only twice a month. Will check triglycerides, Fibrosure and check for other etiologies of hepatitis. Will try clear liquids.
[2016-06-23] MEDS: LACTATED RINGERS SOLUTION 1,000 ML IV SCH (15:47)
--- NOTE | 2016-06-23 17:35 | PN ---
Physical Exam: SUBJECTIVE: Patient seen and examined. Abdominal pain is much improved. OBJECTIVE: Vital Signs Period Temp Pulse Resp BP Sys/[place] Pulse Ox Last 24 Hr 98.8 F-99.6 F 73-78 18-20 101-134/54-66 98-98 GENERAL: The patient is awake, alert, and fully oriented, in no acute distress. HEAD: Normal with no signs of trauma. EYES: PERRL, extraocular movements intact, sclera anicteric, conjunctiva clear. No ptosis. LUNGS: Breath sounds equal, clear to auscultation bilaterally, no wheezes, no crackles, no accessory muscle use. HEART: Regular rate and rhythm, S1, S2 without murmur, rub or gallop. ABDOMEN: Soft, not distended, not tender; hypoactive bowel sounds; no rebound, guarding EXTREMITIES: 2+ pulses, warm, well-perfused, no edema. NEUROLOGICAL: Cranial nerves II through XII grossly intact. Normal speech, gait not observed. Moves all extremities freely. Laboratory Results - last 24 hr 06/22/16 06/23/16 06/23/16 15:15 06:00 06:00 WBC 12.9 H RBC 4.15 Hgb 12.7 Hct 37.1 MCV 89.4 MCHC 34.2 RDW 16.1 H Plt Count 214 MPV 9.2 Neutrophils % 79.1 Lymphocytes % 6.6 L Monocytes % 12.5 H Eosinophils % 1.6 D Basophils % 0.2 Sodium 139 Potassium 3.3 L Chloride 102 Carbon Dioxide 24 Anion Gap 13 BUN 9 D Creatinine 0.6 L Random Glucose 132 H D Calcium 8.4 L Magnesium 2.2 Total Bilirubin 1.7 H D Direct Bilirubin 0.9 H D AST 34 D ALT 72 Alkaline Phosphatase 200 H Total Protein 5.2 L Albumin 2.2 L Urine Color Anna Urine Appearance Clear Urine pH 6.0 Ur Specific [place] 1.020 Urine Protein Negative Urine Glucose (UA) Negative Urine Ketones 1+ H Urine Blood Negative Urine Nitrite Negative Urine Bilirubin Negative Urine Urobilinogen 4.0 e.u/dl Ur Leukocyte Esterase Negative Active Medications Generic Name Dose Route Start Last Admin Trade Name Freq PRN Reason Stop Dose Admin Docusate Sodium 100 mg 06/22/16 06:00 06/23/16 15:47 Colace - PO 100 mg TID AMANDA Administration Heparin Sodium (Porcine) 5,000 unit 06/22/16 10:00 06/23/16 10:40 Heparin - SQ 5,000 unit BID AMANDA Administration Metronidazole 100 mls @ 100 mls/hr 06/22/16 10:00 06/23/16 09:27 Flagyl 500mg Premixed Ivpb - IVPB 100 mls/hr Q8H-IV AMANDA Administration Levofloxacin 100 mls @ 100 mls/hr 06/22/16 09:15 06/23/16 09:27 Levaquin 500 Mg Premixed Ivpb - IVPB 100 mls/hr DAILY AMANDA Administration Lactated Ringer's 1,000 mls @ 125 mls/hr 06/23/16 14:00 06/23/16 15:47 Lactated Ringers Solution IV 125 mls/hr ASDIR AMANDA Administration Morphine Sulfate 2 mg 06/22/16 05:59 06/23/16 04:30 Morphine Injection - IVPUSH 2 mg Q6H PRN Administration PAIN Ondansetron HCl 4 mg 06/22/16 00:27 Zofran Injection IVPB Q6H PRN NAUSEA Pantoprazole Sodium 40 mg 06/22/16 10:00 06/23/16 10:36 Protonix - PO Not Given DAILY AMANDA Polyethylene Glycol 17 gm 06/22/16 10:00 06/23/16 10:35 Miralax (For Daily Use) - PO Not Given DAILY AMANDA Imaging 06/21/16 US abdomen: gallbladder debris with minimal sludge, tiny stones, mild wall thickening, no duct dilitation; enlarged pancreas, mainly pancreatic head, concern for acute pancreatitis v. pancreatic mass 06/22/16 MRCP: (1) acute pancreatitis; (2) four subcentimeter pancreatic head cysts, will need 3 month follow-up ASSESSMENT/PLAN 61 year-old male with a PMH of HTN and HLD, presented to his PCP with complaint of RUQ pain. PCP did blood work which showed WBC 27k, Total bili 7.3, Direct bili 2.2, and Alkphos 182. Patient was sent to ED Biliary colic likely secondary to biliary pancreatitis Leukocytosis Hyperbilirubinemia --per GI, suspect resolving biliary pancreatitis due to a passed stone but continue to respect the possibility of alcohol-related pancreatitis --significant improvement in total bili 8.0 on admission-->1.7 --WBC trending down but still elevated; continue levofloxacin (day #2) and metronidazole (day #2) Pyuria --antibiotics as above --culture pending F/E/N Fluids: LR @ 125mL/hr Electrolytes: replete as indicated Nutrition: clears DVT prophylaxis: subq heparin Dispo: continues to require inpatient care. Full code. Visit type - Emergency Visit Emergency Visit: Yes ED Registration Date: 06/21/16 Care time: The patient presented to the Emergency Department on the above date and was hospitalized for further evaluation of their emergent condition. - New Patient This patient is new to me today: No - Critical Care Critical Care patient: No
[2016-06-24] MEDS: LACTATED RINGERS SOLUTION 1,000 ML IV SCH ×3 (01:21→18:19)
[2016-06-24] MEDS: METRONIDAZOLE 500 MG PREMIXED 100 ML IVPB SCH ×3 (03:47→18:21)
[2016-06-24] MEDS: DOCUSATE SODIUM 100 MG CAPSULE (FP) PO SCH (06:47)
[2016-06-24 07:49] LABS: MCH 30.8 pg (25.7-33.7); MCHC 34.3 g/dl (32.0-35.9); MEAN CELL VOLUME 89.7 fl (80-96); MEAN PLT VOLUME 9.2 fl (7.5-11.1); PLATELET COUNT 230 K/MM3 (134-434); RDW 16.5 % (11.9-15.9); WHITE BLOOD COUNT 10.6 K/mm3 (4.0-10.0)
[2016-06-24 08:04] LABS: ALBUMIN 2.2 g/dl (3.4-5.0); CALCIUM 8.3 mg/dL (8.5-10.1)
[2016-06-24 08:07] LABS: COCKROFT - GAULT 182.96; CREATININE 0.6 mg/dL (0.7-1.3)
[2016-06-24 08:09] LABS: BILIRUBIN,DIRECT 0.8 mg/dL (0.0-0.2); BILIRUBIN,TOTAL 1.6 mg/dL (0.2-1.0); C-REACTIVE PROTEIN 12.4 MG/DL (0.00-0.3); TOT PROT 5.1 g/dl (6.4-8.2)
[2016-06-24 08:14] LABS: FERRITIN 1655.15 ng/ml (16.4-293.9)
[2016-06-24 08:54] LABS: METAMYELOCYTE 3 % (0-2); PLATELET COMMENT2 NO CLOTTING DETECTED; PLATELET ESTIMATE ADEQUATE (NORMAL)
[2016-06-24] MEDS: HEPARIN NA (PORCINE) 5,000 UNITS/ML 1ML VIAL SQ SCH ×2 (10:12→21:53)
[2016-06-24] MEDS: LEVOFLOXACIN 500 MG IVPB 100 ML IVPB SCH (10:12)
[2016-06-24] MEDS: PANTOPRAZOLE 40 MG TABLET (FP) PO SCH (10:13)
[2016-06-24] MEDS: POLYETHYLENE GLYCOL 3350 119 GM BTL PO SCH (10:13)
--- NOTE | 2016-06-24 11:44 | PN ---
GI Progress Note Subjective: GI NOte: ( covering Dr Forrest) : Had some pain and diarrhea last night but this has resolved. No vomiting. - Objective Vital Signs: Vital Signs Temperature 98.8 F 06/24/16 10:12 Pulse Rate 73 06/24/16 10:12 Respiratory Rate 18 06/24/16 10:12 Blood Pressure 146/77 06/24/16 10:12 O2 Sat by Pulse Oximetry (%) 98 06/23/16 21:00 Laboratory Tests 06/21/16 06/24/16 06/24/16 20:11 06:00 06:00 WBC 10.6 H Ferritin 1655.150 H Total Bilirubin 1.6 H AST 43 H 25 D ALT 97 H 56 D Alkaline Phosphatase 225 H 184 H C-Reactive Protein 12.4 H Total Amylase 40 Lipase 175 Constitutional: Calm Eyes: Yes: Conjunctiva Clear Cardiovascular: Yes: Regular Rate and Rhythm Respiratory: Yes: CTA Bilaterally Gastrointestinal Inspection: Yes: Distention ...Auscultate: Yes: Normoactive Bowel Sounds ...Palpate: Yes: Soft, Other (nontender) ...Percussion: Yes: Tympanitic Labs: CBC, BMP 06/24/16 06:00 06/24/16 06:00 Assessment/Plan Resolving pancreatitis now suspected to be due to passage of sludge or a stone. Will get Hida scan. I explained to Bronson that he will likely need a cholecystectomy and pancreatic EUS. Dr Forrest will return tomorrow.
--- NOTE | 2016-06-24 18:51 | PN ---
Physical Exam: SUBJECTIVE: Patient seen and examined. Not feeling as well as yesterday. Had pain and nausea overnight. OBJECTIVE: Vital Signs Period Temp Pulse Resp BP Sys/[place]idan Pulse Ox Last 24 Hr 98.2 F-99.7 F 71-74 18-20 141-149/70-79 98 GENERAL: The patient is awake, alert, and fully oriented, in no acute distress. HEAD: Normal with no signs of trauma. EYES: PERRL, extraocular movements intact, sclera anicteric, conjunctiva clear. No ptosis. LUNGS: Breath sounds equal, clear to auscultation bilaterally, no wheezes, no crackles, no accessory muscle use. HEART: Regular rate and rhythm, S1, S2 without murmur, rub or gallop. ABDOMEN: Soft, not distended, not tender; hypoactive bowel sounds; no rebound, guarding EXTREMITIES: 2+ pulses, warm, well-perfused, no edema. NEUROLOGICAL: Cranial nerves II through XII grossly intact. Normal speech, gait not observed. Moves all extremities freely. Laboratory Results - last 24 hr 06/24/16 06/24/16 06:00 06:00 WBC 10.6 H RBC 4.11 Hgb 12.7 Hct 36.9 MCV 89.7 MCHC 34.3 RDW 16.5 H Plt Count 230 MPV 9.2 Neutrophils % 71.0 Lymphocytes % 12.0 D Monocytes % 8.0 Band Neutrophils 2.0 Metamyelocytes 3 H Reactive Lymphocytes 3 Platelet Estimate Adequate Platelet Comment No clotting detected Sodium 140 Potassium 3.7 Chloride 103 Carbon Dioxide 24 Anion Gap 13 BUN 7 D Creatinine 0.6 L Random Glucose 107 H Calcium 8.3 L Ferritin 1655.150 H Total Bilirubin 1.6 H Direct Bilirubin 0.8 H AST 25 D ALT 56 D Alkaline Phosphatase 184 H C-Reactive Protein 12.4 H Total Protein 5.1 L Albumin 2.2 L Triglycerides 135 Total Amylase 40 Lipase 175 Active Medications Generic Name Dose Route Start Last Admin Trade Name Freq PRN Reason Stop Dose Admin Heparin Sodium (Porcine) 5,000 unit 06/22/16 10:00 06/24/16 10:12 Heparin - SQ 5,000 unit BID AMANDA Administration Metronidazole 100 mls @ 100 mls/hr 06/22/16 10:00 06/24/16 18:21 Flagyl 500mg Premixed Ivpb - IVPB 100 mls/hr Q8H-IV AMANDA Administration Levofloxacin 100 mls @ 100 mls/hr 06/22/16 09:15 06/24/16 10:12 Levaquin 500 Mg Premixed Ivpb - IVPB 100 mls/hr DAILY AMANDA Administration Lactated Ringer's 1,000 mls @ 125 mls/hr 06/23/16 14:00 06/24/16 18:19 Lactated Ringers Solution IV Not Given ASDIR AMANDA Morphine Sulfate 2 mg 06/22/16 05:59 06/23/16 04:30 Morphine Injection - IVPUSH 2 mg Q6H PRN Administration PAIN Ondansetron HCl 4 mg 06/22/16 00:27 Zofran Injection IVPB Q6H PRN NAUSEA Pantoprazole Sodium 40 mg 06/22/16 10:00 06/24/16 10:13 Protonix - PO 40 mg DAILY AMANDA Administration Polyethylene Glycol 17 gm 06/22/16 10:00 06/24/16 10:13 Miralax (For Daily Use) - PO 17 grams DAILY AMANDA Administration Imaging 06/21/16 US abdomen: gallbladder debris with minimal sludge, tiny stones, mild wall thickening, no duct dilitation; enlarged pancreas, mainly pancreatic head, concern for acute pancreatitis v. pancreatic mass 06/22/16 MRCP: (1) acute pancreatitis; (2) four subcentimeter pancreatic head cysts, will need 3 month follow-up ASSESSMENT/PLAN 61 year-old male with a PMH of HTN and HLD, presented to his PCP with complaint of RUQ pain. PCP did blood work which showed WBC 27k, total bili 7.3, direct bili 2.2, and alkphos 182. Patient was sent to ED. Biliary colic likely secondary to biliary pancreatitis Leukocytosis Hyperbilirubinemia --per GI, suspect resolving biliary pancreatitis due to a passed stone --bili trending down, WBC trending down --continue levofloxacin (day #3) and metronidazole (day #3) --HIDA ordered by Dr. Cadet --GI following Pyuria --culture negative F/E/N Fluids: LR @ 125mL/hr Electrolytes: replete as indicated Nutrition: clears DVT prophylaxis: subq heparin Dispo: continues to require inpatient care. Full code. Visit type - Emergency Visit Emergency Visit: Yes ED Registration Date: 06/21/16 Care time: The patient presented to the Emergency Department on the above date and was hospitalized for further evaluation of their emergent condition. - New Patient This patient is new to me today: No - Critical Care Critical Care patient: No
[2016-06-25] MEDS: METRONIDAZOLE 500 MG PREMIXED 100 ML IVPB SCH (02:21)
[2016-06-25 06:06] LABS: SERUM IRON 32 ug/dL (38-169); TOTAL IRON BINDING CAPACITY 126 ug/dL (250-450); UIBC 94 ug/dL (111-343)
[2016-06-25 07:15] LABS: MCH 30.8 pg (25.7-33.7); MCHC 34.1 g/dl (32.0-35.9); MEAN CELL VOLUME 90.4 fl (80-96); MEAN PLT VOLUME 9.3 fl (7.5-11.1); PLATELET COUNT 239 K/MM3 (134-434); WHITE BLOOD COUNT 8.8 K/mm3 (4.0-10.0)
[2016-06-25 07:37] LABS: ALBUMIN 2.2 g/dl (3.4-5.0); AMYLASE 39 U/L (25-115); ANION GAP 11 (8-16); CALCIUM 8.5 mg/dL (8.5-10.1); CO2 27 mmol/L (21-32); GLUCOSE,RANDOM 127 mg/dL (74-106); MAGNESIUM 1.9 mg/dL (1.8-2.4)
[2016-06-25 07:41] LABS: ALK PHOS 144 U/L (45-117); C-REACTIVE PROTEIN 8.6 MG/DL (0.00-0.3); COCKROFT - GAULT 156.82; CREATININE 0.7 mg/dL (0.7-1.3); PHOSPHOROUS 3.4 mg/dL (2.5-4.9); SGOT/AST 24 U/L (15-37); SGPT/ALT 46 U/L (12-78); TOT PROT 4.9 g/dl (6.4-8.2)
[2016-06-25 13:31] LABS: METAMYELOCYTE 1 % (0-2)
[2016-06-25 13:32] LABS: PLATELET ESTIMATE ADEQUATE (NORMAL)
[2016-06-25 14:22] VITALS: BP 121/63; PULSE 83; TEMP 97.9
--- NOTE | 2016-06-25 16:52 | DS ---
Physical Exam: SUBJECTIVE: Patient seen and examined. pt states that he feels fine. His stomach is fine. He just needs to go home and eat. Pt demanding to go home today /now. OBJECTIVE: Vital Signs 3 Period Temp Pulse Resp BP Sys/[place] Pulse Ox Last 24 Hr 97.9 F-99.0 F 65-83 18-20 121-150/63-87 PHYSICAL EXAM GENERAL: The patient is awake, alert, and fully oriented, in no acute distress. HEAD: Normal with no signs of trauma. EYES: PERRL, extraocular movements intact, sclera anicteric, conjunctiva clear. ENT: Ears normal, nares patent, oropharynx clear without exudates, moist mucous membranes. NECK: Trachea midline, full range of motion, supple. LUNGS: Breath sounds equal, clear to auscultation bilaterally, no wheezes, no crackles, no accessory muscle use. HEART: Regular rate and rhythm, S1, S2 without murmur, rub or gallop. ABDOMEN: Soft, nontender, nondistended, normoactive bowel sounds, no guarding, no rebound, no hepatosplenomegaly, no masses. EXTREMITIES: 2+ pulses, warm, well-perfused, no edema. NEUROLOGICAL: Cranial nerves II through XII grossly intact. Normal speech, gait not observed. PSYCH: Normal mood, normal affect. SKIN: Warm, dry, normal turgor, no rashes or lesions noted. LABS Laboratory Results - last 24 hr 3 06/24/16 06/25/16 06/25/16 06:00 05:35 05:35 WBC 8.8 RBC 4.06 Hgb 12.5 Hct 36.7 MCV 90.4 MCHC 34.1 RDW 16.0 H Plt Count 239 MPV 9.3 Neutrophils % 79.0 Lymphocytes % 10.0 Monocytes % 5.0 Eosinophils % 1.0 Basophils % 1.0 D Band Neutrophils 1.0 D Metamyelocytes 1 D Myelocytes 2 Differential Comment Manual diff done Platelet Estimate Adequate Sodium 140 Potassium 4.0 Chloride 102 Carbon Dioxide 27 Anion Gap 11 BUN 6 L Creatinine 0.7 Creat Clearance w eGFR > 60 Random Glucose 127 H Calcium 8.5 Phosphorus 3.4 Magnesium 1.9 Iron 32 L TIBC 126 L Iron Saturation 25 Total Bilirubin 1.0 D AST 24 ALT 46 Alkaline Phosphatase 144 H D C-Reactive Protein 8.6 H D Total Protein 4.9 L Albumin 2.2 L Total Amylase 39 Lipase 165 US abd 06/21/16: IMPRESSION: Hepatomegaly with fatty infiltration versus hepatocellular disease. Please correlate with liver enzymes. Gallbladder debris with minimal sludge and probable tiny stones with mild thickening of its wall and without evidence of pericholecystic free fluid. Correlate clinically for further evaluation. Enlarged pancreas, mainly the pancreatic head with heterogeneous echotexture for which further evaluation with three-phase CT scan of the abdomen/pancreas is recommended to evaluate for acute pancreatitis versus a mass KUB 06/22/16: Impression. No evidence of intestinal obstruction. MRI abd/ MRCP 06/22/16 IMPRESSION: Acute pancreatitis is identified. Approximately four pancreatic head cysts are noted ranging in diameter from 0.2 to 0.5 cm. Accurate size measurement is somewhat difficult due to motion artifact. Correlate with 3-4 month follow-up MRI/MRCP. There is no MRCP evidence of choledocholithiasis (sensitivity 90%). No biliary tract dilatation is identified. Several punctate gallbladder foci are noted which may represent calculi and/or debris. Splenomegaly (15.7 cm in length). Small pericardial effusion. Trace bilateral pleural effusions. HIDA scan 06/25/16: IMPRESSION: No filling of the gallbladder after 90 minutes of imaging suspicious for cystic duct obstruction and acute cholecystitis in the right clinical setting. HOSPITAL COURSE: Date of Admission:06/21/16 Date of Discharge: 06/25/16 This is a 61 year old male with a past medical history of HTN, HLD who was sent to ED from PCP office with abdominal pain. US revealed GB with minimal sludge & tiny stones with some mild wall thickening. Pancreases is enlarged with possible mass in pancreatic head. Hepatomegaly (fatty vs Hepatocellular disease) . Pt was evaluated by GI who recommended MRCP which revealed acute pancreatitis with pancreatic head cysts. HIDA scan perfomed which revealed no filling of GB suspicious for cystic duct obstruction and acute cholecystitis. Patient was informed of results of all tests. Advised cholecystectomy would be best course of action as per GI and pt urged to stay for surgical consult. At this time, pt refused to stay despite urging to the contrary. He was advised of the risk of worsening infection, significant morbidity related to same and even in lay terms. Pt signed out AMA. He was advised to take antibiotics prescribed and to f/u with PCP, GI and surgery THIS week. Minutes to complete discharge: 45 Discharge Summary Reason For Visit: CHOLONGITIS Current Active Problems Cholangitis (Acute) Elevated liver function tests (Acute) Gallstones (Acute) - Instructions Referrals: Kristi Maldonado MD [Primary Care Provider] - Disposition: AGAINST MEDICAL ADVICE - Home Medications Comprehensive Discharge Medication List: Ambulatory Orders NK [No Known Home Medication] 06/22/16 This patient is new to me today: Yes Date on this admission: 06/25/16 Emergency Visit: Yes ED Registration Date: 06/21/16 Care time: The patient presented to the Emergency Department on the above date and was hospitalized for further evaluation of their emergent condition. Critical Care patient: No - Discharge Referral Referred to [facility] No
[2016-06-26 00:15] LABS: CA 19-9 25 U/mL (0-35)
[2016-06-26 14:13] LABS: HEP B SURFACE AB Non Reactive (.)
[2016-06-27 08:08] LABS: ALPHA 2 MACROGLOBULINS,QN 98 mg/dL (110-276); BILIRUBIN TOTAL 1.2 mg/dL (0.0-1.2); FIBROSIS STAGE F1-F2 (.); GGT= 214 IU/L (0-65); GLUCOSE SERUM 123 mg/dL (65-99); HAPTOGLOBIN= 457 mg/dL (34-200); HEIGHT 68 Inches (.); TRIGLYCERIDES= 150 mg/dL (0-149)
[2016-07-08 13:14] LABS: LIMITATIONS. SEE FILE COPY
== END 2016-06-25 17:05 | disposition left against medical advice (07) | DRG 444 ==
LOC: JER 18:55 → JERBED 23:51 → J7W 06-22 01:49
PROVIDERS: ADMIT Internal Medicine; ATTEND Nurse Practitioner Family
DX: K83.0 Cholangitis (principal); K85.10 Biliary acute pancreatitis without necrosis or infection; N39.0 Urinary tract infection, site not specified; I10 Essential (primary) hypertension; E78.5 Hyperlipidemia, unspecified; E87.6 Hypokalemia; E66.9 Obesity, unspecified; Z68.34 Body mass index [BMI] 34.0-34.9, adult; K80.20 Calculus of gallbladder without cholecystitis without obstruction; R19.7 Diarrhea, unspecified
CPT/HCPCS: 36415; 36600; 71020-TC; 74000-TC; 74182-TC; 76705-TC; 78226-TC; 80048; 80053; 80076; 81003; 81015; 82105; 82150; 82172; 82247; 82248; 82375; 82465; 82728; 82803; 82947; 82977; 83010; 83050; 83540; 83550; 83605; 83690; 83735; 83883; 84100; 84450; 84460; 84478; 85025; 85027; 86140; 86301; 86704; 86706; 86708; 87040; 87086; 87340; 93005; 93010; 99283-25; A9537; A9576; J1644